=== PATIENT | male | born 1950 | race Two or more races ===

== ENCOUNTER 2018-05-25 18:25 | Emergency (ER) | payer OTHER ==
[~2018-05-25] VITALS: Ht 182.9 cm; Wt 62.1 kg
[2018-05-25] MEDS ORDERED: ZANTAC 7575 MG (18:36)
[2018-05-25] MEDS ORDERED: SINGULAIR5 MG (18:37)
[2018-05-25] MEDS ORDERED: NAPROXEN250 MG (18:39)
[2018-05-25] MEDS ORDERED: INDERAL LA80 MG (18:39)
[2018-05-25] MEDS ORDERED: ZANAX (18:41)
== END 2018-05-25 19:54 | disposition home or self-care (01) ==
LOC: ER 18:25
DX: M54.2 Cervicalgia (principal); M25.512 Pain in left shoulder; R10.32 Left lower quadrant pain

== ENCOUNTER → 2019-05-22 | Emergency (ER) | payer OTHER ==
[~2019-05-22] VITALS: Ht 182.9 cm; Wt 68.0 kg
[~2019-05-22] MED LIST: INDERAL LA80 MG; NAPROXEN250 MG; NORVASC5 MG PO; SINGULAIR5 MG; ZANAX; ZANTAC 7575 MG
== END | disposition left against medical advice (07) ==
LOC: ER 12:24
DX: R42 Dizziness and giddiness (principal)